=== PATIENT | female | born 2000 | race African-American/Black ===

== ENCOUNTER 2020-07-16 19:50 | Emergency (ER) | payer OTHER ==
--- NOTE | 2020-07-16 21:52 | EDM.PDOC ---
ED HPI GENERAL MEDICAL PROBLEM - General Chief Complaint: Genitourinary Problem Stated Complaint: VAGINAL ITCHING Time Seen by Provider: 07/16/20 19:54 Source of Information: Reports: Patient History Limitations: Reports: No Limitations - History of Present Illness INITIAL COMMENTS - FREE TEXT/NARRATIVE: HISTORY AND PHYSICAL: History of present illness: Patient is a 19-year-old female who presents to the ED today with concern of a genital herpes infection outbreak over the past 1 day. Patient states she was diagnosed with genital herpes 2 to 3 years ago and since then has only had one other outbreak. Patient states she started having an outbreak again last night and the pain and symptoms are typical of her usual outbreaks. Patient states she is just starting to get a small area of blistering which is painful to touch which is typical of her usual outbreaks. Patient denies any vaginal discharge or any concern for sexually transmitted infection. Patient denies fever, chills, chest pain, shortness of breath, or cough. Denies headache, neck stiff ness, change in vision, syncope, or near syncope. Denies nausea, vomiting, abdominal pain, diarrhea, constipation, or dysuria. Has not noted any blood in urine or stool. Patient has been eating and drinking appropriately. Review of systems: As per history of present illness and below otherwise all systems reviewed and negative. Past medical history: As per history of present illness and as reviewed below otherwise noncontributory. Surgical history: As per history of present illness and as reviewed below otherwise noncontributory. Social history: See social history for further information Family history: As per history of present illness and as reviewed below otherwise noncontributory. Physical exam: General: Patient is alert, oriented, and in no acute distress. Patient sitting comfortably on exam table. HEENT: Atraumatic, normocephalic, pupils equal and reactive bilaterally, negative for conjunctival pallor or scleral icterus, mucous membranes moist, TMs normal bilaterally, throat clear, neck supple, nontender, trachea midline. No drooling or trismus noted. No meningeal signs. No hot potato voice noted. Lungs: Clear to auscultation, breath sounds equal bilaterally, chest nontender. Heart: S1S2, regular rate and rhythm without overt murmur Abdomen: Soft, nondistended, nontender. Negative for masses or hepatosplenomegaly. Negative for costovertebral tenderness. Pelvis: Stable nontender. Genitourinary: Deferred. Rectal: Deferred. Skin: Intact, warm, dry. No lesions or rashes noted. Extremities: Atraumatic, negative for cords or calf pain. Neurovascular unremarkable. Neuro: Awake, alert, oriented. Cranial nerves II through XII unremarkable. Cerebellum unremarkable. Motor and sensory unremarkable throughout. Exam nonfocal. Notes: Discussed importance for follow-up with a primary care provider or women's health provider. Voices understanding and is agreeable to plan of care. Denies any further questions or concerns at this time. [facility] None Prescription: Acyclovir Impression: HSV infection Plan: . Take medication as prescribed. You can alternate ibuprofen and Tylenol as directed for pain and discomfort. Follow-up with a primary care provider or women's health provider as discussed. Return to the ED as needed and as discussed. Definitive disposition and diagnosis as appropriate pending reevaluation and review of above. Vaginal Pain Score (Numeric/FACES): 7 - Related Data Allergies Allergy/AdvReac Type Severity Reaction Status Date / Time No Known Allergies Allergy Verified 07/16/20 21:18 Home Meds: Home Meds Albuterol Sulfate [Albuterol Sulfate Hfa] 2 mg INH ASDIRECTED 07/16/20 [History] Past Medical History HEENT History: Reports: None Cardiovascular History: Reports: None Respiratory History: Reports: Asthma Genitourinary History: Reports: None SLOT HOST History: Reports: None Musculoskeletal History: Reports: None Neurological History: Reports: None Psychiatric History: Reports: None Endocrine/Metabolic History: Reports: None Hematologic History: Reports: None Other Immunologic History: herpes Oncologic (Cancer) History: Reports: None Dermatologic History: Reports: None - Infectious Disease History Infectious Disease History: Reports: Herpes - Past Surgical History Head Surgeries/Procedures: Reports: None GI Surgical History: Reports: Hernia, Abdominal Social & Family History - Tobacco Use Smoking Status *Q: Current Some Day Smoker Years of Tobacco use: 3 Packs/Tins Daily: 0.1 - Caffeine Use Caffeine Use: Reports: None - Recreational Drug Use Recreational Drug Use: No ED ROS GENERAL - Review of Systems Review Of Systems: Comprehensive ROS is negative, except as noted in HPI. ED EXAM, GENERAL - Physical Exam Exam: See Below (see dictation) Course - Vital Signs Last Recorded V/S: Last Vital Signs Temp 97.8 F 07/16/20 21:15 Pulse 68 07/16/20 21:15 Resp 18 07/16/20 21:15 BP 119/73 07/16/20 21:15 Pulse Ox 99 07/16/20 21:15 - Orders/Labs/Meds Orders: Active Orders 24 hr Category Date Time Status UA RFX WILY AND CULT IF INDIC [URIN] Stat Lab 07/16/20 21:35 Received Labs: Laboratory Tests 07/16/20 Range/Units 21:35 Urine HCG, Qual NEGATIVE (NEGATIVE) Departure - Departure Time of Disposition: 21:49 Disposition: Home, Self-Care 01 Clinical Impression: HSV (herpes simplex virus) infection - Discharge Information Referrals: PCP,None [Primary Care Provider] - Additional Instructions: The following information is given to patients seen in the emergency department who are being discharged to home. This information is to outline your options for follow-up care. We provide all patients seen in our emergency department with a follow-up referral. The need for follow-up, as well as the timing and circumstances, are variable depending upon the specifics of your emergency department visit. If you don't have a primary care physician on staff, we will provide you with a referral. We always advise you to contact your personal physician following an emergency department visit to inform them of the circumstance of the visit and for follow-up with them and/or the need for any referrals to a consulting specialist. The emergency department will also refer you to a specialist when appropriate. This referral assures that you have the opportunity for follow-up care with a specialist. All of these measure are taken in an effort to provide you with optimal care, which includes your follow-up. Under all circumstances we always encourage you to contact your private physician who remains a resource for coordinating your care. When calling for follow-up care, please make the office aware that this follow-up is from your recent emergency room visit. If for any reason you are refused follow-up, please contact the [facility] Emergency Department at and asked to speak to the emergency department charge nurse. [facility] [address] [place] [id number] [facility] [address] [place] [address] [facility] [address] [place] [address] 1. Take medication as prescribed. You can alternate ibuprofen and Tylenol as directed for pain and discomfort. Follow-up with a primary care provider or women's health provider as discussed. Return to the ED as needed and as discussed. Sepsis Event Note (ED) - Evaluation Sepsis Screening Result: No Definite Risk - Focused Exam Vital Signs: Vital Signs Temp Pulse Resp BP Pulse Ox 07/16/20 21:15 97.8 F 68 18 119/73 99 - My Orders Last 24 Hours: My Active Orders 07/16/20 21:35 UA RFX WILY AND CULT IF INDIC [URIN] Stat - Assessment/Plan Last 24 Hours: My Active Orders 07/16/20 21:35 UA RFX WILY AND CULT IF INDIC [URIN] Stat
== END 2020-07-16 22:15 | disposition home or self-care (01) ==
LOC: MW.ED 19:50
DX: B00.9 Herpesviral infection, unspecified (principal); J45.909 Unspecified asthma, uncomplicated; F17.210 Nicotine dependence, cigarettes, uncomplicated
CPT/HCPCS: 81001; 81025; 99282; 99283

== ENCOUNTER 2020-10-11 14:35 | Emergency (ER) | payer OTHER | END 2020-10-11 15:45 | disposition left against medical advice (07) | LOC: MW.ED 14:35 | DX: Z53.21 Procedure and treatment not carried out due to patient leaving prior to being seen by health care provider (principal) ==

== ENCOUNTER 2020-10-11 19:13 | Emergency (ER) | payer OTHER ==
--- NOTE | 2020-10-11 19:40 | EDM.PDOC ---
ED HPI GENERAL MEDICAL PROBLEM - General Chief Complaint: KILN PUSHER Problem Stated Complaint: MISCARRIAGE Time Seen by Provider: 10/11/20 19:15 Source of Information: Reports: Patient History Limitations: Reports: No Limitations - History of Present Illness INITIAL COMMENTS - FREE TEXT/NARRATIVE: Presents reporting bleeding in early . Patient states her last menstrual period was 09/01/2020 she did go [facility] and had a positive test. She started spotting last night. This morning she had some dark blood that became more bright red throughout the day along with cramping. She states that she is not really filling a pad. She has been mildly nauseated but no vomiting she was tested for and treated for chlamydia 2 weeks ago. She has a history of well-controlled asthma. Bilateral Lower Abdomen Pain Score (Numeric/FACES): 7 - Related Data Allergies Allergy/AdvReac Type Severity Reaction Status Date / Time No Known Allergies Allergy Verified 10/11/20 19:38 Home Meds: Home Meds Albuterol Sulfate [Albuterol Sulfate Hfa] 2 mg INH ASDIRECTED 07/16/20 [History] Past Medical History HEENT History: Reports: None Cardiovascular History: Reports: None Respiratory History: Reports: Asthma Genitourinary History: Reports: None KILN PUSHER History: Reports: None Musculoskeletal History: Reports: None Neurological History: Reports: None Psychiatric History: Reports: None Endocrine/Metabolic History: Reports: None Hematologic History: Reports: None Other Immunologic History: herpes Oncologic (Cancer) History: Reports: None Dermatologic History: Reports: None - Infectious Disease History Infectious Disease History: Reports: Herpes - Past Surgical History Head Surgeries/Procedures: Reports: None GI Surgical History: Reports: Hernia, Abdominal Social & Family History - Caffeine Use Caffeine Use: Reports: None ED ROS GENERAL - Review of Systems Review Of Systems: Comprehensive ROS is negative, except as noted in HPI. ED EXAM - Physical Exam Exam: See Below Exam Limited By: No Limitations General Appearance: Alert, No Apparent Distress Ears: Normal External Exam Nose: Normal Inspection Throat/Mouth: Normal Inspection Head: Atraumatic, Normocephalic Neck: Normal Inspection Respiratory/Chest: No Respiratory Distress, Lungs Clear, Normal Breath Sounds Cardiovascular: Normal Peripheral Pulses, Regular Rate, Rhythm, No Edema, No Murmur GI/Abdominal Exam: Soft, No Distention, Other (Suprapubic tenderness) Extremities: Normal Inspection, Normal Range of Motion Neurological: Alert, Oriented, Normal Cognition Psychiatric: Normal Affect, Normal Mood Skin Exam: Warm, Dry, Intact, Normal Color, No Rash Lymphatic: No Adenopathy Course - Vital Signs Last Recorded V/S: Last Vital Signs Temp 36.0 C L 10/11/20 19:31 Pulse 92 10/11/20 19:31 Resp BP 141/72 H 10/11/20 19:31 Pulse Ox 98 10/11/20 19:31 - Orders/Labs/Meds Labs: Laboratory Tests 10/11/20 10/11/20 10/11/20 Range/Units 19:28 19:56 19:56 WBC 5.71 (4.0-11.0) K/uL RBC 4.10 L (4.30-5.90) M/uL Hgb 13.0 (12.0-16.0) g/dL Hct 38.3 (36.0-46.0) % MCV 93.4 (80.0-98.0) fL MCH 31.7 (27.0-32.0) pg MCHC 33.9 (31.0-37.0) g/dL RDW Std Deviation 44.7 (28.0-62.0) fl RDW Coeff of Kristen 13 (11.0-15.0) % Plt Count 272 (150-400) K/uL MPV 9.20 (7.40-12.00) fL Neut % (Auto) 43.7 L (48.0-80.0) % Lymph % (Auto) 45.4 H (16.0-40.0) % [place] % (Auto) 8.6 (0.0-15.0) % Eos % (Auto) 2.1 (0.0-7.0) % Baso % (Auto) 0.2 (0.0-1.5) % Neut # (Auto) 2.5 (1.4-5.7) K/uL Lymph # (Auto) 2.6 H (0.6-2.4) K/uL [place] # (Auto) 0.5 (0.0-0.8) K/uL Eos # (Auto) 0.1 (0.0-0.7) K/uL Baso # (Auto) 0.0 (0.0-0.1) K/uL Nucleated RBC % 0.0 /100WBC Nucleated RBCs # 0 K/uL HCG, Quant 2129.0 mIU/mL Urine Color YELLOW Urine Appearance CLEAR Urine pH 7.0 (5.0-8.0) Ur Specific [place] 1.020 (1.001-1.035) Urine Protein NEGATIVE (NEGATIVE) mg/dL Urine Glucose (UA) NEGATIVE (NEGATIVE) mg/dL Urine Ketones 40 H (NEGATIVE) mg/dL Urine Occult Blood SMALL H (NEGATIVE) Urine Nitrite NEGATIVE (NEGATIVE) Urine Bilirubin NEGATIVE (NEGATIVE) Urine Urobilinogen 0.2 (<2.0) EU/dL Ur Leukocyte Esterase NEGATIVE (NEGATIVE) Urine RBC 1-2 (0-2/HPF) Urine WBC 0-1 (0-5/HPF) Ur Epithelial Cells RARE (NONE-FEW) Urine Bacteria RARE (NEGATIVE) Blood Type 10/11/20 Range/Units 19:56 WBC (4.0-11.0) K/uL RBC (4.30-5.90) M/uL Hgb (12.0-16.0) g/dL Hct (36.0-46.0) % MCV (80.0-98.0) fL MCH (27.0-32.0) pg MCHC (31.0-37.0) g/dL RDW Std Deviation (28.0-62.0) fl RDW Coeff of Kristen (11.0-15.0) % Plt Count (150-400) K/uL MPV (7.40-12.00) fL Neut % (Auto) (48.0-80.0) % Lymph % (Auto) (16.0-40.0) % [place] % (Auto) (0.0-15.0) % Eos % (Auto) (0.0-7.0) % Baso % (Auto) (0.0-1.5) % Neut # (Auto) (1.4-5.7) K/uL Lymph # (Auto) (0.6-2.4) K/uL [place] # (Auto) (0.0-0.8) K/uL Eos # (Auto) (0.0-0.7) K/uL Baso # (Auto) (0.0-0.1) K/uL Nucleated RBC % /100WBC Nucleated RBCs # K/uL HCG, Quant mIU/mL Urine Color Urine Appearance Urine pH (5.0-8.0) Ur Specific [place] (1.001-1.035) Urine Protein (NEGATIVE) mg/dL Urine Glucose (UA) (NEGATIVE) mg/dL Urine Ketones (NEGATIVE) mg/dL Urine Occult Blood (NEGATIVE) Urine Nitrite (NEGATIVE) Urine Bilirubin (NEGATIVE) Urine Urobilinogen (<2.0) EU/dL Ur Leukocyte Esterase (NEGATIVE) Urine RBC (0-2/HPF) Urine WBC (0-5/HPF) Ur Epithelial Cells (NONE-FEW) Urine Bacteria (NEGATIVE) Blood Type O POSITIVE - Re-Assessments/Exams Free Text/Narrative Re-Assessment/Exam: 10/11/20 22:15 Dr. Rm, KILN PUSHER here to see patient and review US, labs. Dr. Rm has arranged for the patient to have a surgical intervention in the am. Patient denies any pain and currently has no vaginal bleeding on vag exam. Vital signs stable. Free Text/Narrative Re-Assessment/Exam: 10/11/20 22:20 Departure - Departure Time of Disposition: 22:17 Disposition: Home, Self-Care 01 Condition: Good Clinical Impression: Ectopic Qualifiers: Location of ectopic : unspecified location Intrauterine status: without intrauterine Qualified Code(s): O00.90 - Unspecified ectopic without intrauterine - Discharge Information Referrals: PCP,None [Primary Care Provider] - Hayden Rm MD [Physician] - Forms: ED Department Discharge Additional Instructions: The following information is given to patients seen in the emergency department who are being discharged to home. This information is to outline your options for follow-up care. We provide all patients seen in our emergency department with a follow-up referral. The need for follow-up, as well as the timing and circumstances, are variable depending upon the specifics of your emergency department visit. If you don't have a primary care physician on staff, we will provide you with a referral. We always advise you to contact your personal physician following an emergency department visit to inform them of the circumstance of the visit and for follow-up with them and/or the need for any referrals to a consulting specialist. The emergency department will also refer you to a specialist when appropriate. This referral assures that you have the opportunity for follow-up care with a specialist. All of these measure are taken in an effort to provide you with optimal care, which includes your follow-up. Under all circumstances we always encourage you to contact your private physician who remains a resource for coordinating your care. When calling for follow-up care, please make the office aware that this follow-up is from your recent emergency room visit. If for any reason you are refused follow-up, please contact the [facility] Emergency Department at and asked to speak to the emergency department charge nurse. 1. Not eat or drink anything after midnight. 2. We called in the morning regarding what time to come to the hospital. 3. Do NOT stay alone tonight. If you have pelvic pain or bright red vaginal bleeding, return to the ER promptly. Sepsis Event Note (ED) - Evaluation Sepsis Screening Result: No Definite Risk - Focused Exam Vital Signs: Vital Signs Temp Pulse BP Pulse Ox 10/11/20 19:31 36.0 C L 92 141/72 H 98
--- NOTE | 2020-10-11 20:50 | US ---
INDICATION: [facility], bleeding and cramping, gestational age by LMP is 5 weeks 5 days TECHNIQUE: Ultrasound OB pelvis transvaginal. Real-time tapia-scale imaging of the pelvis was performed. COMPARISON: None FINDINGS: Sonographic imaging demonstrates no intrauterine or extrauterine gestational sac. The endometrium measures 11 mm and is heterogeneous. Both ovaries are normal in size. Normal right ovary. 2.1 x 2.0 x 1.6 cm slightly hypoechoic lesion on the left ovary. Moderate amount of free fluid in the cul de sac. IMPRESSION: No intrauterine gestational sac identified. The Emergency Department hCG is still pending. There is a 2cm lesion on the left ovary and free fluid in the cul de sac. An ectopic cannot be excluded on this ultrasound. Recommend correlation with hCG when results are available. Findings discussed with Molly Hilario NP at 8:48pm on 10/11/2020. Dictated by Elena Carreon MD @ Oct 11 2020 8:33PM Signed by Dr. Elena Carreon @ Oct 11 2020 8:49PM
--- NOTE | 2020-10-12 13:10 | CONS ---
DATE OF CONSULTATION: 10/11/2020 DATE OF : 2000 PRIMARY CARE PHYSICIAN: None PCP This is an ER consult on this patient. She is 20 years old. She is para 0-0-1- 0. She thinks her last period sometime in late July or early August. She had a home positive test. She has a history of chlamydia. She was unsure whether it was treated or not. However, for the purpose of this consultation, I reviewed the history and physical examination performed by the nurse practitioner in the ER, and I also interviewed the patient, and I also reviewed her ultrasound report and ultrasound image. The patient, from the history and physical and the ultrasound images, shows that she has empty uterus. There is a possible lesion on her right ovary about 2 to 3 cm. She has hemoperitoneum. The image is consistent with leaking or ruptured tubal . The patient's vital signs essentially are normal. Her hemoglobin is 13. She is complaining of mild cramps, and there is mild spotting and/or vaginal bleeding. The pelvic examination by the nurse practitioner in the ER was essentially normal. My conclusion for this consultation that this patient has had a tubal , is either leaking or in an early stage of rupture, and her vital sign and her condition are stable. I discussed the option of treatment with the patient. I discussed with her medical treatment in the form of methotrexate, and I told her she fit the criteria for the methotrexate treatment and offer to give her the methotrexate today, and then we followed her by serial HCG level, and she may require another dose of methotrexate, and I told her there is a possibility of failure and that she may have a surgical option, which is a diagnostic laparoscopy with a possible resection and removal of the segment of the tube where is the tubal , which is the 2nd option for the patient, and after discussing both options with the patient in detail and answering her question, the patient elected to have surgical diagnostic laparoscopy for the treatment of her tubal . I was in the process of admitting her to [facility] in observation; however, the patient asked if she can go home and come early in the morning for which is we are planning to do her surgery since her vital signs and her condition stable. I told her that if she elected to do that, then she need not eat or drink, and I told her that this could change to a more emergent situation if she started having more bleeding, and she could have more pain, and she could feel dizzy, and I told her if these symptoms happen, she needs to come back to the emergency room emergent and as soon as possible. The patient understands these instruction and verbalized them very well. I contacted the warehouse foreman, and we booked the patient for early surgery at 8 o'clock, and operative consent is obtained. History and physical is written, and the patient instructed to come back when she will be contacted by the OR personnel, and I also instructed her again not the eat or drink after midnight. Prior to discharge the patient, we gave her the instruction for ectopic precaution. TRACE / JESSICA /[id number] [id number]
== END 2020-10-11 22:45 | disposition home or self-care (01) ==
LOC: MW.ED 19:13
DX: O00.90 Unspecified ectopic pregnancy without intrauterine pregnancy (principal); O99.511 Diseases of the respiratory system complicating pregnancy, first trimester; J45.909 Unspecified asthma, uncomplicated
CPT/HCPCS: 36415; 76817; 76817-26; 81001; 84702; 85025; 86900; 86901; 99282; 99284-25

== ENCOUNTER 2020-10-14 04:17 | Emergency (ER) | payer OTHER ==
[2020-10-14] MEDS ORDERED: Sodium Chloride 0.9% 10 ML Syringe FLUSH PRN (04:38)
[2020-10-14] MEDS ORDERED: Sodium Chloride 0.9% 2.5 ML Syringe FLUSH PRN (04:38)
--- NOTE | 2020-10-14 04:51 | EDM.PDOC ---
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 She is passing some clots after sexual intercourse tonight. She had pain earlier in the day. Seen 10/11/2020 here in the emergency department because of spotting 2 weeks after she had been treated for chlamydia infection. Menstrual period was noted to be 09/01/2020. Patient was found to have a hemoglobin of 13 hematocrit 38 white count 5700 and platelet count 272,000. Her beta-hCG at that time was 2129. Sound revealed a 2.1 x 2 x 1.6 hypoechoic lesion in the left ovary which was presumed to be an ectopic . There was moderate blood in the cul-de-sac. Blood type is O+. After discussion with Dr. Rm she was asked to remain n.p.o. after midnight and to have a surgical procedure on the . He had a family emergency so she went to [place] instead. He back today she had pain and after she had sexual contact she had bleeding. She claims she is no orthostatic symptoms Review of systems: As per history of present illness and below otherwise all systems reviewed and negative. Past medical history: As per history of present illness and as reviewed below otherwise noncontributory. Surgical history: As per history of present illness and as reviewed below otherwise noncontributory. Social history: No reported history of drug or alcohol abuse. Family history: As per history of present illness and as reviewed below otherwise noncontributory. Physical exam: Constitutional - well developed, well-nourished and in no acute distress HEENT - normocephalic, no evidence of trauma - external nose and mouth normal - no mass in neck and no JVD - mucosae moist EYES - full EOM, PERRL, no icterus - no evidence of inflammation, injection, or drainage Respiratory - no respiratory distress, equal bilateral expansion, lungs clear to auscultation and no abnormal lung sounds Cardiovascular - Regular Rhythm with S1 and S2 appreciated and no murmur, gallop or rub. GI - abdomen soft without distension or organomegaly - normal bowel sounds - no guard or rebound Musculoskeletal no gross deformity of long bones or joints - no tenderness, swelling or edema Neurologic - Alert and oriented times four - CN II-XII grossly intact - motor sensory and coordination symmetrically normal Psychiatric - appropriate mood and affect with normal thought content Hematologic - No petechiae or purpura - mucosa appropriate color and sclera not pale - normal nail bed color and refill Integument - no rash or evidence of trauma - normal turgor Diagnostics: [] Therapeutics: [] Impression: [] Plan: [] Definitive disposition and diagnosis as appropriate pending reevaluation and review of above. My physical exam is in the HPI Abdominal Pain Score (Numeric/FACES): 5 - Related Data Allergies Allergy/AdvReac Type Severity Reaction Status Date / Time No Known Allergies Allergy Verified 10/14/20 04:36 Home Meds: Home Meds Albuterol Sulfate [Albuterol Sulfate Hfa] 2 mg INH ASDIRECTED 07/16/20 [History] Past Medical History HEENT History: Reports: None Cardiovascular History: Reports: None Respiratory History: Reports: Asthma Gastrointestinal History: Reports: None Genitourinary History: Reports: None BARREL INSPECTOR TIGHT History: Reports: , Spontaneous Other BARREL INSPECTOR TIGHT History: 1 previous miscarriage Musculoskeletal History: Reports: None Neurological History: Reports: None Psychiatric History: Reports: None Endocrine/Metabolic History: Reports: None Hematologic History: Reports: None Immunologic History: Reports: None Other Immunologic History: herpes Oncologic (Cancer) History: Reports: None Dermatologic History: Reports: None - Infectious Disease History Infectious Disease History: Reports: Herpes - Past Surgical History Head Surgeries/Procedures: Reports: None GI Surgical History: Reports: Hernia, Abdominal Social & Family History - Family History Family Medical History: No Pertinent Family History - Caffeine Use Caffeine Use: Reports: None - Recreational Drug Use Recreational Drug Use: Yes Recreational Drug Type: Reports: Marijuana/Hashish Recreational Drug Use Frequency: Daily ED ROS GENERAL - Review of Systems Review Of Systems: Comprehensive ROS is negative, except as noted in HPI. ED EXAM, GENERAL - Physical Exam Exam: See Below Free Text/Narrative:: My physical exam is in the HPI Course - Vital Signs Text/Narrative:: 6:18 AM I discussed the case with Dr. Rm and he recommended methotrexate and office visit in 3 days. Patient is certainly stable. Her hemoglobin is stable. Her vital signs are stable. She has a single tubal that was less than 2.2 cm. Calculated surface area is 0.82 m. A dose of 50 mg/m would be 91 mg. Complications adverse effects and side effects and need for follow-up were discussed with the patient. Last Recorded V/S: Last Vital Signs Temp 35.7 C L 10/14/20 04:29 Pulse 76 10/14/20 04:29 Resp 16 10/14/20 04:29 BP 119/77 10/14/20 04:29 Pulse Ox 98 10/14/20 04:29 Orthostatic Blood Pressure [ 121/76 Standing] Orthostatic Blood Pressure [ 122/86 Sitting] Orthostatic Blood Pressure [ 121/76 Supine] - Orders/Labs/Meds Orders: Active Orders 24 hr Category Date Time Status Orthostatic Vital Signs [RC] ASDIRECTED Care 10/14/20 04:39 Active Sodium Chloride 0.9% [Saline Flush] Med 10/14/20 04:38 Active 10 ml FLUSH ASDIRECTED PRN Sodium Chloride 0.9% [Saline Flush] Med 10/14/20 04:38 Active 2.5 ml FLUSH ASDIRECTED PRN Saline Lock Insert [OM.PC] Stat Oth 10/14/20 04:39 Ordered Medication Orders Sodium Chloride (Saline Flush) 10 ml FLUSH ASDIRECTED PRN PRN Reason: Keep Vein Open Sodium Chloride (Saline Flush) 2.5 ml FLUSH ASDIRECTED PRN PRN Reason: Keep Vein Open Labs: Laboratory Tests 10/14/20 10/14/20 10/14/20 Range/Units 04:53 04:53 04:53 WBC 5.72 (4.0-11.0) K/uL RBC 3.91 L (4.30-5.90) M/uL Hgb 12.4 (12.0-16.0) g/dL Hct 36.5 (36.0-46.0) % MCV 93.4 (80.0-98.0) fL MCH 31.7 (27.0-32.0) pg MCHC 34.0 (31.0-37.0) g/dL RDW Std Deviation 44.4 (28.0-62.0) fl RDW Coeff of Kristen 13 (11.0-15.0) % Plt Count 299 (150-400) K/uL MPV 9.20 (7.40-12.00) fL Neut % (Auto) 35.2 L (48.0-80.0) % Lymph % (Auto) 56.8 H (16.0-40.0) % [place] % (Auto) 5.2 (0.0-15.0) % Eos % (Auto) 2.6 (0.0-7.0) % Baso % (Auto) 0.2 (0.0-1.5) % Neut # (Auto) 2.0 (1.4-5.7) K/uL Lymph # (Auto) 3.3 H (0.6-2.4) K/uL [place] # (Auto) 0.3 (0.0-0.8) K/uL Eos # (Auto) 0.2 (0.0-0.7) K/uL Baso # (Auto) 0.0 (0.0-0.1) K/uL Nucleated RBC % 0.0 /100WBC Nucleated RBCs # 0 K/uL Sodium 139 (136-145) mmol/L Potassium 3.0 L (3.5-5.1) mmol/L Chloride 102 (98-107) mmol/L Carbon Dioxide 28.1 (21.0-32.0) mmol/L BUN 8 (7.0-18.0) mg/dL Creatinine 0.9 (0.6-1.0) mg/dL Est Cr Clr Drug Dosing 95.35 mL/min Estimated GFR (MDRD) > 60.0 ml/min Glucose 93 (74-106) mg/dL Calcium 8.9 (8.5-10.1) mg/dL HCG, Quant 2030.0 mIU/mL SARS-CoV-2 RNA ([place]) (NEGATIVE) Blood Type O POSITIVE Antibody Screen NEGATIVE 10/14/20 Range/Units 04:55 WBC (4.0-11.0) K/uL RBC (4.30-5.90) M/uL Hgb (12.0-16.0) g/dL Hct (36.0-46.0) % MCV (80.0-98.0) fL MCH (27.0-32.0) pg MCHC (31.0-37.0) g/dL RDW Std Deviation (28.0-62.0) fl RDW Coeff of Kristen (11.0-15.0) % Plt Count (150-400) K/uL MPV (7.40-12.00) fL Neut % (Auto) (48.0-80.0) % Lymph % (Auto) (16.0-40.0) % [place] % (Auto) (0.0-15.0) % Eos % (Auto) (0.0-7.0) % Baso % (Auto) (0.0-1.5) % Neut # (Auto) (1.4-5.7) K/uL Lymph # (Auto) (0.6-2.4) K/uL [place] # (Auto) (0.0-0.8) K/uL Eos # (Auto) (0.0-0.7) K/uL Baso # (Auto) (0.0-0.1) K/uL Nucleated RBC % /100WBC Nucleated RBCs # K/uL Sodium (136-145) mmol/L Potassium (3.5-5.1) mmol/L Chloride (98-107) mmol/L Carbon Dioxide (21.0-32.0) mmol/L BUN (7.0-18.0) mg/dL Creatinine (0.6-1.0) mg/dL Est Cr Clr Drug Dosing mL/min Estimated GFR (MDRD) ml/min Glucose (74-106) mg/dL Calcium (8.5-10.1) mg/dL HCG, Quant mIU/mL SARS-CoV-2 RNA ([place]) NEGATIVE (NEGATIVE) Blood Type Antibody Screen Meds: Medications Generic Name Dose Route Start Last Admin Trade Name Freq PRN Reason Stop Dose Admin Sodium Chloride 10 ml 10/14/20 04:38 Saline Flush FLUSH ASDIRECTED PRN Keep Vein Open Sodium Chloride 2.5 ml 10/14/20 04:38 Saline Flush FLUSH ASDIRECTED PRN Keep Vein Open Discontinued Medications Generic Name Dose Route Start Last Admin Trade Name Freq PRN Reason Stop Dose Admin Methotrexate Sodium 91 mg 10/14/20 06:16 Methotrexate IM 10/14/20 06:17 ONETIME ONE Departure - Departure Time of Disposition: 07:00 Disposition: Home, Self-Care 01 Condition: Good Clinical Impression: Ectopic of left ovary - Discharge Information Instructions: Ectopic , [id number] Referrals: PCP,None [Primary Care Provider] - Hayden Rm MD [Physician] - Forms: ED Department Discharge Additional Instructions: You may experience abdominal pain. Tylenol should be sufficient to take care of this. It is imperative that you see Dr. Rm when he wants you to call today and make an appointment to be seen Saturday you should tell the office staff that he wants to see you on the and he was consulted in the emergency department. Lab work is vitally important. This will ensure that treatment is effective and has not caused any side effects. The following information is given to patients seen in the emergency department who are being discharged to home. This information is to outline your options for follow-up care. We provide all patients seen in our emergency department with a follow-up referral. The need for follow-up, as well as the timing and circumstances, are variable depending upon the specifics of your emergency department visit. If you don't have a primary care physician on staff, we will provide you with a referral. We always advise you to contact your personal physician following an emergency department visit to inform them of the circumstance of the visit and for follow-up with them and/or the need for any referrals to a consulting specialist. The emergency department will also refer you to a specialist when appropriate. This referral assures that you have the opportunity for follow-up care with a specialist. All of these measure are taken in an effort to provide you with optimal care, which includes your follow-up. Under all circumstances we always encourage you to contact your private physician who remains a resource for coordinating your care. When calling for follow-up care, please make the office aware that this follow-up is from your recent emergency room visit. If for any reason you are refused follow-up, please contact the [facility] Emergency Department at and asked to speak to the emergency department charge nurse. Sepsis Event Note (ED) - Evaluation Sepsis Screening Result: No Definite Risk - Focused Exam Vital Signs: Vital Signs Temp Pulse Resp BP Pulse Ox 10/14/20 04:29 35.7 C L 76 16 119/77 98 - My Orders Last 24 Hours: My Active Orders 10/14/20 04:38 Sodium Chloride 0.9% [Saline Flush] 10 ml FLUSH ASDIRECTED PRN Sodium Chloride 0.9% [Saline Flush] 2.5 ml FLUSH ASDIRECTED PRN 10/14/20 04:39 Orthostatic Vital Signs [RC] ASDIRECTED Saline Lock Insert [OM.PC] Stat - Assessment/Plan Last 24 Hours: My Active Orders 10/14/20 04:38 Sodium Chloride 0.9% [Saline Flush] 10 ml FLUSH ASDIRECTED PRN Sodium Chloride 0.9% [Saline Flush] 2.5 ml FLUSH ASDIRECTED PRN 10/14/20 04:39 Orthostatic Vital Signs [RC] ASDIRECTED Saline Lock Insert [OM.PC] Stat
[2020-10-14 05:50] LABS: BLOOD UREA NITROGEN,BUN 8 mg/dL (7.0-18.0); CARBON DIOXIDE,CO2 28.1 mmol/L (21.0-32.0); CHLORIDE,CL 102 mmol/L (98-107); GLUCOSE RANDOM 93 mg/dL (74-106); SODIUM,NA 139 mmol/L (136-145)
== END 2020-10-14 08:53 | disposition home or self-care (01) ==
LOC: MW.ED 04:17
DX: O00.202 Left ovarian pregnancy without intrauterine pregnancy (principal); O99.511 Diseases of the respiratory system complicating pregnancy, first trimester; J45.909 Unspecified asthma, uncomplicated; Z20.828 Contact with and (suspected) exposure to other viral communicable diseases; Z3A.01 Less than 8 weeks gestation of pregnancy
CPT/HCPCS: 36415; 80048; 84702; 85025; 86850; 86900; 86901; 87635; 96372; 99284; J9260; 99282; U0002

== ENCOUNTER 2020-10-16 15:54 | Emergency (ER) | payer OTHER ==
[2020-10-16] MEDS ORDERED: Sodium Chloride 0.9% 1,000 ML IV ONE (16:17)
[2020-10-16] MEDS ORDERED: Ondansetron 4 MG/2 ML SDV IVPUSH ONE (16:17)
--- NOTE | 2020-10-16 16:35 | PCM.SN.2 ---
- Free Text/Narrative Note: 12-Lead ECG Interpretation Acquired: 4:01 PM Rhythm: Sinus rhythm Rate: 84 bpm [place]: Normal Intervals: Normal Ectopy: None RV Strain: No obvious RV strain pattern. ST Segments/T-Waves: No notable changes Acute Ischemic Changes: None apparent Interpretation: No STEMI
--- NOTE | 2020-10-16 16:57 | EDM.PDOC ---
ED HPI GENERAL MEDICAL PROBLEM - General Chief Complaint: Chest Pain Stated Complaint: MEDICATION COMPLICATIONS Time Seen by Provider: 10/16/20 16:10 Source of Information: Reports: Patient History Limitations: Reports: No Limitations - History of Present Illness INITIAL COMMENTS - FREE TEXT/NARRATIVE: Presents to the ED with a complaint of vomiting and not keeping down oral fl uids, chest pain, hip pain and chills. I had seen the patient in the ED on 10/11/2020. On that occasion she had vaginal bleeding in early --HCG 2128. She was dx with a tubal and seen by gynecology. When given the option by WATERWORKS SUPERVISOR, she elected to go home and some back in the morning for a surgical procedure. However, she did not come back and hospital staff were not able to contact her. On 10/14 she returned to the ER and received methotrexate. She has had no vaginal bleeding, pelvic cramping, fever, dysuria, cough or shortness of breath. Chest pain is epigastric and does not radiate anywhere. She again admits that she has been smoking marijuana today. She had a negative COVID on 10/14. 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 Other SENIOR SOFTWARE QA ANALYST History: 1 previous miscarriage Musculoskeletal History: Reports: None Neurological History: Reports: None Psychiatric History: Reports: None Endocrine/Metabolic History: Reports: None Hematologic History: Reports: None Immunologic History: Reports: None Other Immunologic History: herpes Oncologic (Cancer) History: Reports: None Dermatologic History: Reports: None - Infectious Disease History Infectious Disease History: Reports: Herpes - Past Surgical History Head Surgeries/Procedures: Reports: None GI Surgical History: Reports: Hernia, Abdominal Social & Family History - Family History Family Medical History: No Pertinent Family History - Tobacco Use Tobacco Use Status *Q: Never Tobacco User - Caffeine Use Caffeine Use: Reports: Coffee, Energy Drinks - Recreational Drug Use Recreational Drug Use: Yes Drug Use in Last 12 Months: Yes Recreational Drug Type: Reports: Marijuana/Hashish Recreational Drug Use Frequency: Daily ED ROS GENERAL - Review of Systems Review Of Systems: Comprehensive ROS is negative, except as noted in HPI. ED EXAM, GENERAL - Physical Exam Exam: See Below Exam Limited By: No Limitations General Appearance: Alert, No Apparent Distress Ears: Normal External Exam Nose: Normal Inspection Throat/Mouth: Normal Inspection Head: Atraumatic, Normocephalic Neck: Normal Inspection Respiratory/Chest: No Respiratory Distress, Lungs Clear, Normal Breath Sounds Cardiovascular: Normal Peripheral Pulses, Regular Rate, Rhythm, No Edema, No Rub GI/Abdominal: Normal Bowel Sounds, Soft, No Distention, Tender (across pelvis) Extremities: Normal Inspection Neurological: Alert, Oriented, Normal Cognition Psychiatric: Normal Affect, Normal Mood Skin Exam: Warm, Dry, Intact, Normal Color, No Rash Lymphatic: No Adenopathy #1 Interpretation EKG Date: 10/16/20 Time: 16:01 Rhythm: NSR [place]: Normal P-Wave: Present QRS: Normal ST-T: Normal QT: Normal Comparison: NA - No Prior EKG Course - Vital Signs Last Recorded V/S: Last Vital Signs Temp 37.7 C 10/16/20 16:03 Pulse 78 10/16/20 16:38 Resp 16 10/16/20 16:38 BP 120/73 10/16/20 16:38 Pulse Ox 95 10/16/20 16:38 - Orders/Labs/Meds Labs: Laboratory Tests 10/16/20 10/16/20 10/16/20 Range/Units 15:57 15:57 15:57 WBC 5.28 (4.0-11.0) K/uL RBC 4.02 L (4.30-5.90) M/uL Hgb 12.7 (12.0-16.0) g/dL Hct 37.5 (36.0-46.0) % MCV 93.3 (80.0-98.0) fL MCH 31.6 (27.0-32.0) pg MCHC 33.9 (31.0-37.0) g/dL RDW Std Deviation 44.0 (28.0-62.0) fl RDW Coeff of Kristen 13 (11.0-15.0) % Plt Count 301 (150-400) K/uL MPV 9.20 (7.40-12.00) fL Neut % (Auto) 48.1 (48.0-80.0) % Lymph % (Auto) 44.9 H (16.0-40.0) % [place] % (Auto) 5.9 (0.0-15.0) % Eos % (Auto) 0.9 (0.0-7.0) % Baso % (Auto) 0.2 (0.0-1.5) % Neut # (Auto) 2.5 (1.4-5.7) K/uL Lymph # (Auto) 2.4 (0.6-2.4) K/uL [place] # (Auto) 0.3 (0.0-0.8) K/uL Eos # (Auto) 0.1 (0.0-0.7) K/uL Baso # (Auto) 0.0 (0.0-0.1) K/uL Nucleated RBC % 0.0 /100WBC Nucleated RBCs # 0 K/uL D-Dimer, Quantitative (0.0-0.50) mg/L FEU Sodium 139 (136-145) mmol/L Potassium 2.9 L (3.5-5.1) mmol/L Chloride 104 (98-107) mmol/L Carbon Dioxide 27.9 (21.0-32.0) mmol/L BUN 10 (7.0-18.0) mg/dL Creatinine 1.0 (0.6-1.0) mg/dL Est Cr Clr Drug Dosing 85.81 mL/min Estimated GFR (MDRD) > 60.0 ml/min Glucose 95 (74-106) mg/dL Calcium 8.8 (8.5-10.1) mg/dL Total Bilirubin 0.6 (0.2-1.0) mg/dL AST 15 (15-37) IU/L ALT 21 (14-63) IU/L Alkaline Phosphatase 57 (46-116) U/L Troponin I (0.000-0.056) ng/mL Total Protein 6.9 (6.4-8.2) g/dL Albumin 3.8 (3.4-5.0) g/dL Globulin 3.1 (2.6-4.0) g/dL Albumin/Globulin Ratio 1.2 (0.9-1.6) HCG, Quant 1856.0 mIU/mL 10/16/20 10/16/20 Range/Units 15:57 15:57 WBC (4.0-11.0) K/uL RBC (4.30-5.90) M/uL Hgb (12.0-16.0) g/dL Hct (36.0-46.0) % MCV (80.0-98.0) fL MCH (27.0-32.0) pg MCHC (31.0-37.0) g/dL RDW Std Deviation (28.0-62.0) fl RDW Coeff of Kristen (11.0-15.0) % Plt Count (150-400) K/uL MPV (7.40-12.00) fL Neut % (Auto) (48.0-80.0) % Lymph % (Auto) (16.0-40.0) % [place] % (Auto) (0.0-15.0) % Eos % (Auto) (0.0-7.0) % Baso % (Auto) (0.0-1.5) % Neut # (Auto) (1.4-5.7) K/uL Lymph # (Auto) (0.6-2.4) K/uL [place] # (Auto) (0.0-0.8) K/uL Eos # (Auto) (0.0-0.7) K/uL Baso # (Auto) (0.0-0.1) K/uL Nucleated RBC % /100WBC Nucleated RBCs # K/uL D-Dimer, Quantitative 0.45 (0.0-0.50) mg/L FEU Sodium (136-145) mmol/L Potassium (3.5-5.1) mmol/L Chloride (98-107) mmol/L Carbon Dioxide (21.0-32.0) mmol/L BUN (7.0-18.0) mg/dL Creatinine (0.6-1.0) mg/dL Est Cr Clr Drug Dosing mL/min Estimated GFR (MDRD) ml/min Glucose (74-106) mg/dL Calcium (8.5-10.1) mg/dL Total Bilirubin (0.2-1.0) mg/dL AST (15-37) IU/L ALT (14-63) IU/L Alkaline Phosphatase (46-116) U/L Troponin I < 0.050 (0.000-0.056) ng/mL Total Protein (6.4-8.2) g/dL Albumin (3.4-5.0) g/dL Globulin (2.6-4.0) g/dL Albumin/Globulin Ratio (0.9-1.6) HCG, Quant mIU/mL Meds: Medications Discontinued Medications Generic Name Dose Route Start Last Admin Trade Name Freq PRN Reason Stop Dose Admin Sodium Chloride 1,000 mls @ 999 mls/hr 10/16/20 16:17 10/16/20 16:35 Normal Saline IV 10/16/20 17:17 999 mls/hr .Bolus ONE Administration Ondansetron HCl 4 mg 10/16/20 16:17 10/16/20 16:36 Zofran IVPUSH 10/16/20 16:18 4 mg ONETIME ONE Administration - Re-Assessments/Exams Free Text/Narrative Re-Assessment/Exam: 10/16/20 17:49 Patient states she feels better. She is wondering about what she can eat. She states she will be following up with Dr. Rm, WATERWORKS SUPERVISOR tomorrow as previously arranged and discussed Departure - Departure Time of Disposition: 17:49 Disposition: Home, Self-Care 01 Clinical Impression: Hypokalemia Tubal Qualifiers: Intrauterine status: without intrauterine Laterality: unspecified laterality Qualified Code(s): O00.109 - Unspecified tubal without intrauterine Referrals: PCP,None [Primary Care Provider] - Hayden Rm MD [Physician] - Forms: ED Department Discharge Additional Instructions: The following information is given to patients seen in the emergency department who are being discharged to home. This information is to outline your options for follow-up care. We provide all patients seen in our emergency department with a follow-up referral. The need for follow-up, as well as the timing and circumstances, are variable depending upon the specifics of your emergency department visit. If you don't have a primary care physician on staff, we will provide you with a referral. We always advise you to contact your personal physician following an emergency department visit to inform them of the circumstance of the visit and for follow-up with them and/or the need for any referrals to a consulting specialist. The emergency department will also refer you to a specialist when appropriate. This referral assures that you have the opportunity for follow-up care with a specialist. All of these measure are taken in an effort to provide you with optimal care, which includes your follow-up. Under all circumstances we always encourage you to contact your private physician who remains a resource for coordinating your care. When calling for follow-up care, please make the office aware that this follow-up is from your recent emergency room visit. If for any reason you are refused follow-up, please contact the [facility] Emergency Department at and asked to speak to the emergency department charge nurse. 1. Follow up with Dr. Rm tomorrow as previously arranged and discussed 2. BRAT diet--toast, rice, applesauce, toast 3. Plenty of clear fluids including electrolyte solutions (Gatorade, sports drinks, Pedialyte) as your potassium was low 4. Take your potassium supplement daily for the next 2 days. RX to pharmacy. Sepsis Event Note (ED) - Evaluation Sepsis Screening Result: No Definite Risk - Focused Exam Vital Signs: Vital Signs Temp Pulse Resp BP Pulse Ox 10/16/20 16:38 78 16 120/73 95 10/16/20 16:03 37.7 C 94 18 129/73 96
[2020-10-16 17:04] LABS: BLOOD UREA NITROGEN,BUN 10 mg/dL (7.0-18.0); CARBON DIOXIDE,CO2 27.9 mmol/L (21.0-32.0); CHLORIDE,CL 104 mmol/L (98-107); GLUCOSE RANDOM 95 mg/dL (74-106); POTASSIUM,K 2.9 mmol/L (3.5-5.1); SODIUM,NA 139 mmol/L (136-145)
[2020-10-16] MEDS ORDERED: Potassium Chloride 10 MEQ Tab.ER PO ONE (17:54)
[2020-10-16] MEDS ORDERED: Potassium Chloride 20 MEQ Tab.ER ONE (18:15)
[2020-10-16] MEDS ORDERED: Potassium Chloride 20 MEQ Tab.ER PO ONE (18:16)
== END 2020-10-16 18:22 | disposition home or self-care (01) ==
LOC: MW.ED 15:54
DX: O00.109 Unspecified tubal pregnancy without intrauterine pregnancy (principal); O99.281 Endocrine, nutritional and metabolic diseases complicating pregnancy, first trimester; E87.6 Hypokalemia; O99.511 Diseases of the respiratory system complicating pregnancy, first trimester; J45.909 Unspecified asthma, uncomplicated
CPT/HCPCS: 36415; 80053; 84484; 84702; 85025; 85379; 93005; 96374; 99284; A9270; J2405; J7030; 93010; 99283